=== PATIENT | female | born 1970 | race Two or more races ===

== ENCOUNTER → 2017-04-10 | Outpatient (CLI) | payer OTHER | END | disposition home or self-care (01) | LOC: PPH VACUNA 17:20 | DX: Z23 Encounter for immunization (principal) ==

== ENCOUNTER 2017-12-17 15:57 | Outpatient (CLI) | payer OTHER | END 2017-12-17 16:02 | disposition home or self-care (01) | LOC: RAD 15:57 | DX: S82.90XA Unspecified fracture of unspecified lower leg, initial encounter for closed fracture (principal) ==

== ENCOUNTER 2020-11-26 12:35 | Outpatient (CLI) | payer OTHER | END 2020-11-26 12:50 | disposition home or self-care (01) | LOC: PPH VACUNA 12:35 | PROVIDERS: ATTEND Emergency Medicine Pediatric Emergency Medicine | DX: Z23 Encounter for immunization (principal) ==

== ENCOUNTER 2020-12-31 08:00 | Outpatient (CLI) | payer OTHER | END 2020-12-31 08:30 | disposition home or self-care (01) | LOC: PPH VACUNA 08:00 | PROVIDERS: ATTEND Emergency Medicine Pediatric Emergency Medicine | DX: Z23 Encounter for immunization (principal) ==

== ENCOUNTER 2021-01-04 14:07 | Outpatient (CLI) | payer OTHER | END 2021-01-04 14:17 | disposition home or self-care (01) | LOC: RAD 14:07 | PROVIDERS: ATTEND Chiropractor | DX: M43.8X5 Other specified deforming dorsopathies, thoracolumbar region (principal); M54.2 Cervicalgia; M54.59 Other low back pain; G35 Multiple sclerosis ==

== ENCOUNTER 2021-03-08 13:10 | Outpatient (CLI) | payer OTHER | END 2021-03-08 13:22 | disposition home or self-care (01) | LOC: RAD 13:10 | PROVIDERS: ATTEND Specialist | DX: M25.562 Pain in left knee (principal) ==

== ENCOUNTER 2021-12-13 16:00 | Outpatient (CLI) | payer OTHER | END 2021-12-13 16:05 | disposition home or self-care (01) | LOC: PPH VACUNA 16:00 | PROVIDERS: ATTEND Emergency Medicine Pediatric Emergency Medicine | DX: Z23 Encounter for immunization (principal) ==

== ENCOUNTER 2022-07-28 07:14 | Outpatient (CLI) | payer OTHER | END 2022-07-28 07:16 | disposition home or self-care (01) | LOC: NUCLEAR 07:14 | PROVIDERS: ATTEND Internal Medicine | DX: I11.9 Hypertensive heart disease without heart failure (principal); I25.118 Atherosclerotic heart disease of native coronary artery with other forms of angina pectoris; E78.2 Mixed hyperlipidemia ==

== ENCOUNTER 2022-07-28 07:50 | Outpatient (CLI) | payer OTHER | END 2022-07-28 07:54 | disposition home or self-care (01) | LOC: LAB 07:50 | PROVIDERS: ATTEND Internal Medicine | DX: U07.1 COVID-19 (principal); B34.1 Enterovirus infection, unspecified ==

== ENCOUNTER 2024-03-28 15:22 | Outpatient (CLI) | payer OTHER | END 2024-03-28 15:29 | disposition home or self-care (01) | LOC: RAD 15:22 | PROVIDERS: ATTEND Student in an Organized Health Care Education/Training Program | DX: M25.562 Pain in left knee (principal); M25.561 Pain in right knee ==

== ENCOUNTER 2024-12-23 10:10 | Outpatient (CLI) | payer OTHER | END 2024-12-23 10:20 | disposition home or self-care (01) | LOC: PPH VACUNA 10:10 | PROVIDERS: ATTEND Emergency Medicine Pediatric Emergency Medicine | DX: Z23 Encounter for immunization (principal) ==